=== PATIENT | male | born 1995 | race Caucasian/White ===

== ENCOUNTER 2017-04-01 21:21 | Emergency (ER) | payer BC ==
[2017-04-01 21:46] VITALS: BP 132/73
[2017-04-01] MEDS ORDERED: Amoxicillin/Clavulanate K 875-125 MG Tab PO ONE (22:08)
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
== END 2017-04-01 22:25 | disposition home or self-care (01) ==
LOC: JD.ED 21:21
DX: S01.512A Laceration without foreign body of oral cavity, initial encounter (principal); V89.2XXA Person injured in unspecified motor-vehicle accident, traffic, initial encounter
CPT/HCPCS: 99283; A9270

== ENCOUNTER 2021-06-05 05:31 | Emergency (ER) | payer SELFPAY ==
[2021-06-05 06:30] VITALS: BP 167/88; PULSE 88
[2021-06-05] MEDS ORDERED: Alum Hydrox/Mag Hydrox/Simeth 30 ML, Lidocaine 2% 15 ML PO STA ×2 (06:40)
[2021-06-05] MEDS ORDERED: Lidocaine 2% Viscous Solution 15 ML Cup ONE (06:42)
--- NOTE | 2021-06-05 06:42 | EDM.PDOC ---
<Carlo Musa - Last Filed: 06/05/21 06:57> ED HPI GENERAL MEDICAL PROBLEM - General Chief Complaint: Abdominal Pain Stated Complaint: STOMACH PAIN Time Seen by Provider: 06/05/21 06:25 Source of Information: Reports: Patient History Limitations: Reports: No Limitations - History of Present Illness INITIAL COMMENTS - FREE TEXT/NARRATIVE: Mr. Toribio is a very pleasant 26-year-old gentleman who now presents the ED stating that he was woken around 04:00 this morning with burning epigastric pain that wraparound to his right back. He states that the pain is constant. It feels better if he is sitting, worse if he is supine. No associated nausea, vomiting, constipation, diarrhea, fever, or dyspnea. The patient states that he has had similar symptoms about once a month for the past 8 years. He states that he was hospitalized about 8 years ago and told that he needed to undergo a cholecystectomy, however, he never followed up in that regard. The patient also has a history of untreated GERD. The patient did not take any [id number] or home remedies prior to coming to the ED. He states that he last ate around 22:30 last night. Here in the ED, the patient's initial BP is found to be elevated at 167/88, otherwise, he is hemodynamically stable, afebrile, saturating 100% on room air. He appears to be comfortable, in no acute distress. Prior to this morning, the patient denies having a recent fever, chills, sore throat, ear pain, nasal or sinus congestion, cough, dyspnea, chest pain, palpitations, nausea, vomiting, constipation, diarrhea, abdominal pain, urinary symptoms, recent weight gain or weight loss, recent bloody bowel movements or black bowel movements, recent joint aches, headaches, or rashes. The patient does not have a PCP. He has not received a COVID vaccination. Upper Abdominal Pain Score (Numeric/FACES): 7 - Related Data Allergies Allergy/AdvReac Type Severity Reaction Status Date / Time No Known Allergies Allergy Verified 04/01/17 21:40 Home Meds: Home Meds Amoxicillin/Potassium Clav [Augmentin 875-125 Tablet] 1 each PO BID #20 tablet 04/01/17 [Rx] Past Medical History Gastrointestinal History: Reports: GERD (untreated) Endocrine/Metabolic History: Reports: Obesity/BMI 30+ - Past Surgical History HEENT Surgical History: Reports: Adenoidectomy, Myringotomy w Tube(s) (bilatera l) Social & Family History - Tobacco Use Tobacco Use Status *Q: Never Tobacco User - Caffeine Use Caffeine Use: Reports: Coffee, Energy Drinks, Soda, Tea - Alcohol Use Alcohol Use History: Yes - Recreational Drug Use Recreational Drug Use: No - Living Situation & Occupation Living situation: Reports: Single, Alone 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 ED EXAM, GI/ABD - Physical Exam Exam: See Below Exam Limited By: No Limitations General Appearance: Alert, WD/WN, No Apparent Distress Eyes: Bilateral: Normal Appearance, EOMI Ears: Normal External Exam, Hearing Grossly Normal Nose: Normal Inspection Throat/Mouth: Normal Inspection, Normal Lips, Normal Voice, No Airway Compromise Head: Atraumatic, Normocephalic Neck: Normal Inspection, Full Range of Motion Respiratory/Chest: No Respiratory Distress, Lungs Clear, Normal Breath Sounds, No Accessory Muscle Use Cardiovascular: Normal Peripheral Pulses, Regular Rate, Rhythm, No Edema, No Gallop, No JVD, No Murmur, No Rub GI/Abdominal Exam: Normal Bowel Sounds, Soft, No Organomegaly, No Distention, No Abnormal Bruit, No Mass, Tender (Reproducible, right upper quadrant only. Nontender elsewhere. Felipe sign absent.) Back Exam: Normal Inspection, Full Range of Motion. No: CVA Tenderness (L), CVA Tenderness (R) Extremities: Normal Inspection, Normal Range of Motion, No Pedal Edema, Normal Capillary Refill Neurological: Alert, Oriented, Normal Cognition, No Motor/Sensory Deficits Psychiatric: Normal Affect Skin Exam: Warm, Dry, Intact, Normal Color, No Rash Course - Re-Assessments/Exams Free Text/Narrative Re-Assessment/Exam: 06/05/21 06:41 The patient's history is compelling for GERD, however, his examination is concerning for cholecystitis, as he has reproducible tenderness to palpation of his right upper quadrant, and the pain radiates through to his back, inferior to his right scapula, but he has no CVA tenderness. I have ordered a GI cocktail, to see if that affects his pain at all. 06/05/21 06:57 The patient reports no improvement following a GI cocktail. This increases the likelihood that his symptoms are due to cholecystitis. I have ordered an ultrasound of the right upper quadrant, to be followed by a CT of his abdomen and pelvis with oral and IV contrast. I have ordered some blood work. In the event that the patient needs to go to the OR, get admitted, or be transferred, I have ordered a swab for the SARS-CoV-2 virus. In the meantime, the patient will be given some IV fluid. He declined an offer for both pain medication and antinausea medication at this time. 06/05/21 07:[address] Mclaughlin, and care of the patient turned over to him at this time, for change of shift. Departure - Departure Disposition: Home, Self-Care 01 Clinical Impression: Biliary colic, Gallstones - Discharge Information Referrals: PCP,None [Primary Care Provider] - Balwinder Diamond MD [Physician] - 1 Week Forms: ED Department Discharge Additional Instructions: Drink plenty of fluids. Try to avoid fried or fatty foods. Take zofran every 6 hours as needed for nausea or vomiting. Take tylenol or motrin for pain. If that does not help, try the hydrocodone. Follow up with Dr Diamond this week. Please return if you are worse. Sepsis Event Note (ED) - Evaluation Sepsis Screening Result: No Definite Risk <Sumanth Mclaughlin - Last Filed: 06/05/21 09:34> Course - Vital Signs Last Recorded V/S: Last Vital Signs Temp 98.1 F 06/05/21 06:24 Pulse 88 06/05/21 06:24 Resp 18 06/05/21 06:24 BP 167/88 H 06/05/21 06:24 Pulse Ox 100 06/05/21 06:24 - Orders/Labs/Meds Orders: Active Orders 24 hr Category Date Time Status CORONAVIRUS COVID-19 HERMES [MOLEC] Stat Lab 06/05/21 07:04 Ordered Sodium Chloride 0.9% [Normal Saline] 1,000 ml Med 06/05/21 07:00 Active IV ASDIRECTED Medication Orders Sodium Chloride (Normal Saline) 1,000 mls @ 150 mls/hr IV ASDIRECTED JOSUE Labs: Laboratory Tests 06/05/21 06/05/21 Range/Units 07:22 07:22 WBC 8.04 (4.23-9.07) K/mm3 RBC 5.60 (4.63-6.08) M/mm3 Hgb 16.6 (13.7-17.5) gm/dl Hct 48.3 (40.1-51.0) % MCV 86.3 (79.0-92.2) fl MCH 29.6 (25.7-32.2) pg MCHC 34.4 (32.2-35.5) g/dl RDW Std Deviation 43.9 (35.1-43.9) fL Plt Count 213 (163-337) K/mm3 MPV 10.3 (9.4-12.3) fl Neutrophils % (Manual) 65 H (40-60) % Band Neutrophils % 6 (0-10) % Lymphocytes % (Manual) 19 L (20-40) % Atypical Lymphs % 0 % Monocytes % (Manual) 6 (2-10) % Eosinophils % (Manual) 4 (0.8-7.0) % Basophils % (Manual) 0 L (0.2-1.2) Platelet Estimate Adequate Plt Morphology Comment Normal RBC Morph Comment Normal Sodium 138 (136-145) mEq/L Potassium 4.1 (3.5-5.1) mEq/L Chloride 105 (98-107) mEq/L Carbon Dioxide 26 (21-32) mEq/L Anion Gap 11.1 (5-15) BUN 16 (7-18) mg/dL Creatinine 0.8 (0.7-1.3) mg/dL Est Cr Clr Drug Dosing 128.53 mL/min Estimated GFR (MDRD) > 60 (>60) mL/min BUN/Creatinine Ratio 20.0 H (14-18) Glucose 120 H (70-99) mg/dL Calcium 8.8 (8.5-10.1) mg/dL Total Bilirubin 0.4 (0.2-1.0) mg/dL AST 18 (15-37) U/L ALT 47 (16-63) U/L Alkaline Phosphatase 96 (46-116) U/L Total Protein 7.5 (6.4-8.2) g/dl Albumin 4.0 (3.4-5.0) g/dl Globulin 3.5 gm/dL Albumin/Globulin Ratio 1.1 (1-2) Lipase 80 (73-393) U/L Meds: Medications Generic Name Dose Route Start Last Admin Trade Name Tree PRN Reason Stop Dose Admin Sodium Chloride 1,000 mls @ 150 mls/hr 06/05/21 07:00 Normal Saline IV ASDIRECTED JOSUE Discontinued Medications Generic Name Dose Route Start Last Admin Trade Name Tree PRN Reason Stop Dose Admin Al Hydroxide/Mg Hydroxide Confirm 06/05/21 06:43 06/05/21 06:47 Aluminum Hydroxide/Magnesium Hydroxide/Simethicone Susp 30 Ml Cup A dministered 06/05/21 06:44 Not Given Dose 30 ml .ROUTE .STK-MED ONE Al Hydroxide/Mg Hydroxide 30 0 ml 06/05/21 06:40 06/05/21 06:46 ml/ Lidocaine HCl 15 ml PO 06/05/21 06:41 45 ml ONETIME STA Administration Lidocaine HCl Confirm 06/05/21 06:42 06/05/21 06:47 Lidocaine 2% Viscous Solution 15 Ml Cup Administered 06/05/21 06:43 Not Given Dose 15 ml .ROUTE .STK-MED ONE - Re-Assessments/Exams Free Text/Narrative Re-Assessment/Exam: 06/05/21 09:[address] Musa. His CBC and CMP look good. His lipase is normal. His US shows fatty infiltration within the liver. Multiple gallstones are seen within the gallbladder. No discrete gallbladder wall thickening or biliary duct dilatation is seen. Nonvisualized pancreas due to bowel gas. 2.8cm parapelvic cyst within the right kidney. The patient feels much better. I do not think we need to go ahead with the CT. If feel this is the gallbladder. I will discharge him home and follow up with Dr Diamond. I will give him something for nausea and pain as needed. Departure - Departure Time of Disposition: 09:35 Condition: Good - Discharge Information *PRESCRIPTION DRUG MONITORING PROGRAM REVIEWED*: Not Applicable *COPY OF PRESCRIPTION DRUG MONITORING REPORT IN PATIENT [place]HEL[place]: Not Applicable Sepsis Event Note (ED) - Focused Exam Vital Signs: Vital Signs Temp Pulse Resp BP Pulse Ox 06/05/21 06:24 98.1 F 88 18 167/88 H 100
[2021-06-05] MEDS ORDERED: Aluminum Hydroxide/Magnesium Hydroxide/Simethicone Susp 30 ML Cup ONE (06:43)
[2021-06-05] MEDS ORDERED: Sodium Chloride 0.9% 1,000 ML IV SCH (07:00)
--- NOTE | 2021-06-05 08:22 | US ---
Limited abdominal ultrasound: Multiple real-time images were obtained of the upper right abdomen. Comparison: No previous study is available. Findings: Liver is somewhat echogenic in relation to the right kidney compatible with fatty infiltration. Gallbladder shows multiple gallstones. No gallbladder wall thickening is definitely appreciated. No biliary duct dilatation is seen. No pericholecystic fluid is seen. Right kidney shows a parapelvic cyst within the mid to upper pole measuring 2.8 cm. Right kidney shows no hydronephrosis. Right kidney has a length of 13.2 cm. Proximal aorta shows no aneurysm. Pancreas is diffusely obscured because of bowel gas. Inferior vena cava is patent. Main portal vein shows normal hepatopedal flow. Impression: 1. Fatty infiltration within the liver. 2. Multiple gallstones are seen within the gallbladder. No discrete gallbladder wall thickening or biliary duct dilatation is seen. 3. Nonvisualized pancreas due to bowel gas. 4. 2.8 cm parapelvic cyst within the right kidney. Diagnostic code #3
== END 2021-06-05 09:40 | disposition home or self-care (01) ==
LOC: JD.ED 05:31
DX: K80.70 Calculus of gallbladder and bile duct without cholecystitis without obstruction (principal); E66.9 Obesity, unspecified; Z68.39 Body mass index [BMI] 39.0-39.9, adult
CPT/HCPCS: 36415; 76705; 80053; 83690; 85007; 85027; 99284; A9270; 99283

== ENCOUNTER 2022-01-29 00:29 | Emergency (ER) | payer SELFPAY ==
[2022-01-29] MEDS ORDERED: Sodium Chloride 0.9% 10 ML Syringe FLUSH PRN (00:44)
[2022-01-29] MEDS ORDERED: HYDROmorphone 0.5 MG/0.5 ML Syringe IVPUSH ONE (01:44)
[2022-01-29] MEDS ORDERED: HYDROmorphone 1 MG/ML Syringe IVPUSH ONE (02:53)
[2022-01-29 06:28] VITALS: BP 136/99; PULSE 99
== END 2022-01-29 06:15 | disposition home or self-care (01) ==
LOC: JD.ED 00:29
DX: S00.03XA Contusion of scalp, initial encounter (principal); S40.012A Contusion of left shoulder, initial encounter; S50.12XA Contusion of left forearm, initial encounter; E66.9 Obesity, unspecified; Z68.41 Body mass index [BMI] 40.0-44.9, adult; V86.99XA Unspecified occupant of other special all-terrain or other off-road motor vehicle injured in nontraffic accident, initial encounter; V86.59XA Driver of other special all-terrain or other off-road motor vehicle injured in nontraffic accident, initial encounter
CPT/HCPCS: 36415; 70450; 70486; 71260; 72125; 73090; 74177; 80053; 80307; 83690; 85025; 96374; 96376; 99284; J1170; J3490